=== PATIENT | female | born 1960 | race Two or more races ===

== ENCOUNTER 2019-07-12 18:54 | Emergency (ER) | payer SELFPAY ==
[~2019-07-12] VITALS: Ht 152.4 cm; Wt 66.0 kg
[2019-07-12 20:25] LABS: CLARITY URINE CLEAR (CLEAR); COLOR URINE YELLOW (YELLOW); KETONES URINE TRACE (NEGATIVE); LEUKOCYTE ESTERASE URINE TRACE (NEGATIVE); NITRITE URINE NEGATIVE (NEGATIVE); OCCULT BLOOD URINE NEGATIVE (NEGATIVE); PROTEIN URINE NEGATIVE (NEGATIVE); SPECIFIC GRAVITY URINE 1.026 (1.005-1.030); UROBILINOGEN URINE 0.2 E.U./dL (0.2-1.0)
[2019-07-12] MEDS ORDERED: KETOROLAC 60MG/2ML VIAL IM ONE (23:15)
[2019-07-13 01:02] VITALS: BP 135/53
== END 2019-07-13 02:56 | disposition home or self-care (01) ==
LOC: ER 18:54
DX: M54.5 Low back pain (principal)
CPT/HCPCS: 72100; 81003; 96372; 99284; J1885